=== PATIENT | female | born 1980 | race Caucasian/White ===

== ENCOUNTER 2024-01-02 16:48 | Outpatient (CLI) | payer BC | END 2024-01-02 16:49 | disposition home or self-care (01) | LOC: BURRAD 16:48 | PROVIDERS: ATTEND Physician Assistant | DX: M47.22 Other spondylosis with radiculopathy, cervical region (principal); M25.551 Pain in right hip; M16.11 Unilateral primary osteoarthritis, right hip; M40.50 Lordosis, unspecified, site unspecified | CPT/HCPCS: 72040 ==